=== PATIENT | male | born 1955 | race Caucasian/White ===

== ENCOUNTER → 2016-05-09 | Day surgery (SDC) | payer OTHER ==
[~2016-05-09] VITALS: Ht 167.6 cm; Wt 70.3 kg
[~2016-05-09] MED LIST: ASPIRIN EC325 M2 PO; LIPITOR40 M1 PO; LISINOPRIL40 M1 PO; METOPROLOL TART25 M1 PO; PRILOSEC OTC20 M1 PO
--- NOTE | 2016-05-11 12:44 | Operative Report ---
Operative/Inv Procedure Report Surgery Date: 05/09/16 Name of Procedure: Open mesh repair of recurrent left inguinal hernia Pre-Operative Diagnosis: Recurrent left inguinal hernia Post-Operative Diagnosis: Incarcerated (bladder) recurrent (medial) left inguinal hernia Estimated Blood Loss: scant Surgeon/Coil Builder: MELISA CAMP,SOFIA DENNEY Anesthesia: general endotracheal tube Operative/Procedure Note Note: Patient was positioned supine on the table. After successful induction of general anesthesia the inguinal and surrounding areas were clipped prepped and draped in the usual sterile fashion. An inguinal incision was planned parallel to the inguinal ligament using the iliac crest and pubic tubercle as a guide the hernia was not fully reducible at this point the 5 cm incision line was first after local anesthetic then the incision was made and deepened first sharply then with cautery through Devyn's fascia and then the underlying external oblique aponeurosis was incised and care was taken to not injure the ilioinguinal nerve which was right there anteriorly. Once in the inguinal canal more local anesthetic was injected we developed the plane underneath the oblique aponeurosis over the rectus fascia medially inferiorly to the shelving edge you could see that this was obviously a medial recurrence with incarcerated bladder through a small opening right over Gera's ligament laterally deep ring was nice and snug around the cord structures there was no recurrence there, so it took some time to reduce the bladder and make sure that it was completely reduced the prior mesh was still secure otherwise decision was made to plug this defect it was a little over a centimeter wide we took up large mesh cut it down to size, first we imbricated some of the fibrofatty tissue behind the reduced bladder with interrupted 3-0 Vicryl sutures and then gently inserted the plug all the way and sewed in place with multiple interrupted 2-0 Prolene sutures paying care to include the suture through at least half of the wrinkled plug each time we secured with 4 sutures. Next the external oblique was reapproximated using a running 2-0 Vicryl suture still sparing the nerve which exited along with the cord inferiorly then we reapproximated subcutaneously Devyn's fascia with interrupted 3-0 Vicryl sutures followed by a running subcuticular 4-0 Monocryl suture for the skin itself, followed by Mastisol, Steri-Strips and Telfa and Tegaderm. Overall estimated blood loss was minimal, lap and sponge counts were correct, wound expectancy was clean, IV fluids crystalloid, complications none, patient tolerated the procedure well, did not significantly adkins during extubation and was returned to the recovery room in satisfactory condition.
== END ==
LOC: STS 02:07
DX: K40.31 Unilateral inguinal hernia, with obstruction, without gangrene, recurrent (principal); B19.20 Unspecified viral hepatitis C without hepatic coma; I10 Essential (primary) hypertension; I25.10 Atherosclerotic heart disease of native coronary artery without angina pectoris; Z95.5 Presence of coronary angioplasty implant and graft
CPT/HCPCS: J0690; J2250